=== PATIENT | female | born 1955 | race Caucasian/White ===

== ENCOUNTER 2024-05-31 17:37 | Inpatient (IN) | payer MEDICARE ==
[2024-05-31 19:05] LABS: PT Prothrombin Time 11.9 SECONDS (9.4-12.5); PTT, Activated Partial Thromb 32.5 SECONDS (24.3-36.9); Protime INR 1.06
[2024-05-31 19:07] LABS: Absolute Basophils 0.1 K/uL (0-0.5); Absolute Monocytes 0.8 K/uL (0.1-1.3); Absolute Neutrophil 8.2 K/uL (1.8-8.0); Basophils % 0.7 % (0-1.3); Eosinophils % 0.2 % (0-4.4); Hematocrit 51.7 % (36.0-45.0); Hemoglobin 17.3 g/dL (12.0-15.0); Lymphocytes % 17.9 % (15.3-44.8); MCH 32.5 pg (27.0-35.0); MCHC 33.4 g/dL (32.0-36.0); MCV 97.4 fL (80-100); MPV 8.3 fL (7.6-11.3); Monocytes % 7.4 % (3.3-12.3); Neutrophils % 73.8 % (41.7-73.7); Nucleated Red Blood Cells % 0.1 % (0-0); Platelets 190 thou/uL (152-406); RBC Red Blood Cell Count 5.31 M/uL (3.86-4.86); Red Cell Distribution Width 12.8 % (12.1-15.2)
--- NOTE | 2024-05-31 19:09 | RAD REPORT ---
EXAMINATION: CT HEAD WITHOUT CONTRAST CLINICAL INDICATION: Female, 69 years old.TRAUMA TECHNIQUE: Axial CT images from the skull base to the vertex without intravenous contrast. Coronal an d sagittal reformatted images were created from the data set. One or more of the following dose reduction techniques were used: Automated exposure control, adjustment of the mA and/or kV according to patient size, and/or iterative reconstruction. Unless otherwise specified, incidental findings do not require dedicated imaging follow-up. [id number]. COMPARISON: No prior exam. FINDINGS: INTRACRANIAL: No acute intracranial hemorrhage. No hydrocephalus. No mass effect or midline shift. Mo derate chronic small vessel ischemic changes. Remote appearing basal ganglia/thalamic lacunar infarcts. Calcified bilateral ICA plaque. VASCULATURE: No visualized abnormalities in the arteries or dural venous sinuses. SCALP/SKULL: No significant soft tissue or osseous abnormalities. SINUSES: The visualized paranasal sinuses and mastoid air cells are predominantly clear. IMPRESSION: No acute intracranial abnormality.
[2024-05-31 19:19] LABS: Albumin 3.2 g/dL (3.4-5.0); Albumin/Globulin Ratio 0.9 (1.1-1.8); Anion Gap 10.5 mEq/L (5.0-15.0); Bilirubin Total 0.6 mg/dL (0.2-1.0); Globulin 3.5 g/dL (2.3-3.5); Potassium 3.5 mEq/L (3.5-5.1); Protein, Total 6.7 g/dL (6.4-8.2)
[2024-05-31] MEDS ORDERED: HYDRALAZINE HCL 20 MG/ML VIAL ONE (19:19)
[2024-05-31] MEDS ORDERED: LABETALOL 20 MG/4ML SYRINGE IV ONE (19:20)
[2024-05-31 19:22] LABS: Troponin High Sensitivity 121.4 pg/mL (<58.9)
[2024-05-31] MEDS ORDERED: TDAP (DIPHTH,PERTUSS(ACELL),TET VAC) 0.5 ML VIAL IMVAC ONE (19:39)
[2024-05-31] MEDS ORDERED: ASPIRIN 81 MG CHEWABLE TABLET ONE ×2 (20:02→20:03)
[2024-05-31] MEDS ORDERED: HEPARIN/D5W 25,000 UNIT/500 ML BAG IV ONE (21:41)
[2024-05-31] MEDS ORDERED: HEPARIN 5000 UNIT/ML 1 ML VIAL ONE (21:41)
--- NOTE | 2024-05-31 22:33 | ER ---
Nurse's Notes [facility] Name: Sandie Moctezuma Age: 69 yrs Sex: Female : 1955 Arrival Date: 05/31/2024 Time: 17:37 Bed 19 Private MD: Diagnosis: Abnormal electrocardiogram [ECG] [EKG];Fall on same level, unspecified;Hypertensive emergency Presentation: 05/31 18:03 Chief complaint: Patient states: fell using her walker, denies LOC, reports hitting aa5 back of head, laceration to back of head, bleeding controlled. Denies taking any anticoagulants. Coronavirus screen: At this time, the client does not indicate any symptoms associated with coronavirus-19. Ebola Screen: Patient denies travel to an Ebola-affected area in the 21 days before illness onset. Initial Sepsis Screen: Does the patient meet any 2 criteria? HR > 90 bpm. Does the patient have a suspected source of infection? No. Patient's initial sepsis screen is negative. Risk Assessment: Do you want to hurt yourself or someone else? Patient reports no desire to harm self or others. Onset of symptoms was May 31, 2024. 18:03 Acuity: RADHA 2 aa5 18:03 Method Of Arrival: Wheelchair aa5 Triage Assessment: 19:30 General: Appears. General: Appears in no apparent distress. Behavior is calm, rg5 cooperative. 19:30 Pain: Denies pain. rg5 Historical: - Allergies: 18:02 No Known Allergies; aa5 - Home Meds: 18:02 None [Active]; aa5 - PMHx: 18:02 None; aa5 - Immunization history:: Adult Immunizations unknown. - Infectious Disease History:: Denies. - Social history:: Smoking status: Patient denies any tobacco usage or history of. Screenin:10 [facility] ED Fall Risk Assessment (Adult) History of falling in the last 3 months, rg5 including since admission Yes- single mechanical fall (1 pt) Confusion or Disorientation No (0 pts) Intoxicated or Sedated No (0 pts) Impaired Gait Yes (1 pt) Mobility Assist Device Used Yes (1 pt) Altered Elimination No (0 pt) Score/Fall Risk Level 3 or more points = High Risk Oriented to surroundings, Maintained a safe environment, Hourly rounding (assess needs \T\ fall precautionary measures) done, Used ambulatory aids as needed (educated on \T\ assisted with). 19:10 Abuse screen: Denies threats or abuse. Nutritional screening: No deficits noted. rg5 Tuberculosis screening: No symptoms or risk factors identified. Assessment: 19:10 General: Appears in no apparent distress. comfortable, Behavior is calm, cooperative, rg5 appropriate for age. 19:10 Pain: Complains of pain in occipital area Pain currently is 5 out of 10 on a pain rg5 scale. Quality of pain is described as aching, Pain began 2 hours ago. Neuro: Level of Consciousness is awake, alert, obeys commands, Oriented to person, place, time. Cardiovascular: Denies chest pain, Heart tones S1 S2 Patient's skin is warm and dry. Rhythm is sinus tachycardia. Respiratory: Airway is patent Trachea midline Breath sounds are clear. GI: Abdomen is flat, Abd is soft and non tender. : No signs and/or symptoms were reported regarding the genitourinary system. EENT: No deficits noted. Derm: Skin is intact, Skin is dry, Skin is normal, Skin temperature is warm. Musculoskeletal: Circulation, motion, and sensation intact. Range of motion: intact in all extremities. 20:00 Reassessment: No changes from previously documented assessment. Patient and/or family rg5 updated on plan of care and expected duration. Pain level reassessed. Patient is alert, oriented x 3, equal unlabored respirations, skin warm/dry/pink. 21:00 Reassessment: No changes from previously documented assessment. Patient and/or family rg5 updated on plan of care and expected duration. Pain level reassessed. Patient is alert, oriented x 3, equal unlabored respirations, skin warm/dry/pink. 22:00 Reassessment: No changes from previously documented assessment. Patient and/or family rg5 updated on plan of care and expected duration. Pain level reassessed. Patient is alert, oriented x 3, equal unlabored respirations, skin warm/dry/pink. 23:00 Reassessment: No changes from previously documented assessment. Patient and/or family rg5 updated on plan of care and expected duration. Pain level reassessed. Patient is alert, oriented x 3, equal unlabored respirations, skin warm/dry/pink. Vital Signs: 18:03 BP 211 / 140; Pulse 110; Resp 18 S; Temp 98.1(O); Pulse Ox 99% on R/A; aa5 19:10 BP 179 / 129; Pulse 104; Resp 18; Pulse Ox 97% on R/A; rg5 20:05 BP 129 / 65; Pulse 99; Resp 17; Weight 43.09 kg; Height 5 ft. 4 in. ; Pain 0/10; rg5 21:00 BP 104 / 68; Pulse 101; Resp 18; Pulse Ox 98% on R/A; rg5 22:00 BP 123 / 75; Pulse 90; Resp 18; Pulse Ox 91% on R/A; Pain 0/10; rg5 23:00 BP 121 / 74; Pulse 102; Resp 19; Temp 98; Pulse Ox 95% on 3 lpm NC; rg5 20:05 Body Mass Index 16.31 (43.09 kg, 162.56 cm) rg5 20:05 Pain Scale: Adult rg5 22:00 Pain Scale: Adult rg5 Amalia Coma Score: 19:10 Eye Response: spontaneous(4). Motor Response: obeys commands(6). Verbal Response: rg5 oriented(5). Total: 15. ED Course: 17:39 Patient arrived in ED. ra3 17:40 Gian Kimball [facility]-C [facility]. dr5 17:40 Diane Garcia MD is Attending Physician. dr5 18:02 Arm band placed on. aa5 18:04 Triage completed. aa5 18:23 Evelyne Markham, RN is Primary Nurse. me1 18:50 Initial lab(s) drawn, by nm, sent to lab. Inserted saline lock: 22 gauge in right me1 antecubital area, using aseptic technique. 18:59 Head Brain Wo Cont CT In Process Unspecified. EDMS 19:10 Patient has correct armband on for positive identification. Bed in low position. Call rg5 light in reach. Side rails up X 1. Door closed. Noise minimized. Warm blanket given. 19:10 No provider procedures requiring assistance completed. rg5 22:31 Devendra Cartagena MD is Hospitalizing Provider. dr5 12 00:33 Provided Education on: needs for admit. rg5 00:33 Patient admitted, IV remains in place. intact. rg5 Administered Medications: 05/31 19:22 Drug: Labetalol IV 10 mg IV at per protocol once Route: IV; Rate: per protocol; Site: rg5 right antecubital; 20:08 Follow up: Response: No adverse reaction; Blood pressure is lowered rg5 22:00 Follow up: Response: No adverse reaction; Blood pressure is lowered rg5 22:00 Follow up: IV Status: Completed infusion rg5 19:22 Drug: hydrALAZINE PO 10 mg PO once Route: PO; rg5 20:08 Follow up: Response: No adverse reaction; Blood pressure is lowered rg5 19:46 Drug: Boostrix Tdap IM 0.5 ml IM once; as a single dose Route: IM; Site: left deltoid; rg5 20:08 Follow up: Response: No adverse reaction rg5 20:04 Drug: Aspirin PO Chewable Tablet 324 mg PO once; 81 mg tablets x 4 Route: PO; rg5 20:47 Follow up: Response: No adverse reaction rg5 21:15 Drug: Heparin (ID-Bolus No thrombolytic) - HEParin IVP 60 units/kg IVP once; Max 5000 rg5 units {Co-Signature: 1 (Evelyne Markham RN).} Route: IVP; Site: right antecubital; 06/01 00:22 Follow up: Response: No adverse reaction rg5 05/31 21:15 Drug: Heparin (ID Drip) 12 units/kg/[place] - ([place] [address] units, D5W IV 500 ml) IV at rg5 calculated rate Per protocol; Max initial rate 1000 units/hr {Co-Signature: me1 (Evelyne Markham RN).} Route: IV; Rate: calculated rate; Site: right antecubital; 06/01 05:46 Follow up: Rate change 600 units/hr rg5 Medication: 00:25 VIS not applicable for this client. rg5 Intake: 05:12 PO: 250ml; Total: 250ml. rg5 Output: 05:12 Urine: 1700ml (Voided); Total: 1700ml. rg5 Outcome: 05/31 22:33 Decision to Hospitalize by Provider. dr5 23:00 Admitted to ER Hold. Please see [facility] for further documentation. rg5 23:00 Condition: good 23:00 Instructed on the need for admit, 06/01 11:57 Patient left the ED. kc6 Signatures: Dispatcher [employer] Megan Yepez RN RN aa5 Zohreh Bolanos RN RN kc6 Evelyne Markham RN RN me1 Piper Shannon ra3 Brayan Humphrey RN RN rg5 Gian Kimball, ASSISTANT QUALITY MANAGER-C ASSISTANT QUALITY MANAGER-Cdr5 Evelyne Markham RN me1 Corrections: (The following items were deleted from the chart) 05/31 18:06 18:03 Pulse 110bpm; Resp 18bpm; Spontaneous; Pulse Ox 99% RA; Temp 98.1F Oral; aa5 aa5 20:17 20:05 BP 129 / 65; Pulse 99bpm; Resp 17bpm; Pain 0/10, Adult; rg5 rg5
--- NOTE | 2024-05-31 22:34 | EDPHYS ---
Physician Documentation [facility] Name: Sandie Moctezuma Age: 69 yrs Sex: Female : 1955 Arrival Date: 05/31/2024 Time: 17:37 Bed 19 Private MD: ED Physician Diane Garcia HPI: 05/31 18:02 This 69 yrs old Female presents to ER via Unassigned with complaints of Head dr5 Injury Without LOC-Adult - Open wound. 18:02 This 69 yrs old Female presents to ER via Unassigned with complaints of Head Injury dr5 Without LOC-Adult - Open wound. 18:02 Patient is a 69 year old female who was walking with her wheelchair, lost her balance, dr5 and fell back and hit her. Pt denies being on blood thinners and denies losing consciousness. Fall happened today around 1600. Pt denies seeing primary care physician and not on daily medication.. Historical: - Allergies: 18:02 No Known Allergies; aa5 - Home Meds: 18:02 None [Active]; aa5 - PMHx: 18:02 None; aa5 - Immunization history:: Adult Immunizations unknown. - Infectious Disease History:: Denies. - Social history:: Smoking status: Patient denies any tobacco usage or history of. ROS: 18:43 Constitutional: as per hpi dr5 Exam: 18:43 Constitutional: This is a well developed, well nourished patient who is awake, alert, dr5 and in no acute distress. Head/Face: Normocephalic 18:43 Head/face: Noted is a laceration(s), that is linear, of the Back of head. Contusion noted. No bleeding in triage., 20:58 ECG was reviewed by the Attending Physician. dr5 22:38 Neck: Trachea midline, no thyromegaly or masses palpated, and no cervical dr5 lymphadenopathy. Supple, full range of motion without nuchal rigidity, or vertebral point tenderness. No Meningismus. Chest/axilla: Normal chest wall appearance and motion. Nontender with no deformity. No lesions are appreciated. Cardiovascular: Regular rate and rhythm with a normal S1 and S2. Normal PMI, no JVD. No pulse deficits. Respiratory: Lungs have equal breath sounds bilaterally, clear to auscultation. No rales, rhonchi or wheezes noted. No increased work of breathing, no retractions or nasal flaring. Back: No spinal tenderness. No costovertebral tenderness. Full range of motion. Neuro: Awake and alert, GCS 15, oriented to person, place, time, and situation. Cranial nerves II-XII grossly intact. Motor strength 5/5 in all extremities. Sensory grossly intact. Cerebellar exam normal. Normal gait. Vital Signs: 18:03 BP 211 / 140; Pulse 110; Resp 18 S; Temp 98.1(O); Pulse Ox 99% on R/A; aa5 19:10 BP 179 / 129; Pulse 104; Resp 18; Pulse Ox 97% on R/A; rg5 20:05 BP 129 / 65; Pulse 99; Resp 17; Weight 43.09 kg; Height 5 ft. 4 in. ; Pain 0/10; rg5 21:00 BP 104 / 68; Pulse 101; Resp 18; Pulse Ox 98% on R/A; rg5 22:00 BP 123 / 75; Pulse 90; Resp 18; Pulse Ox 91% on R/A; Pain 0/10; rg5 23:00 BP 121 / 74; Pulse 102; Resp 19; Temp 98; Pulse Ox 95% on 3 lpm NC; rg5 20:05 Body Mass Index 16.31 (43.09 kg, 162.56 cm) rg5 20:05 Pain Scale: Adult rg5 22:00 Pain Scale: Adult rg5 Imnaha Coma Score: 19:10 Eye Response: spontaneous(4). Motor Response: obeys commands(6). Verbal Response: rg5 oriented(5). Total: 15. Laceration: 19:46 Wound Repair of 1cm ( 0.4in ) subcutaneous laceration to left parietal area. Linear dr5 shaped.. Distal neuro/vascular/tendon intact. Wound prep: Simple cleansing, Copious irrigation. Skin closed with 2 Staple Brandyn using staple gun. Dressed with non-adherent dressing. Patient tolerated well. MDM: 17:41 Medical Screening Exam initiated dr5 22:36 Differential diagnosis: Contusion of Laceration of Intracranial bleed- Concussion. Data dr5 reviewed: vital signs, nurses notes, lab test result(s), EKG, radiologic studies, I have discussed the patient's presentation/case with the attending Emergency Department Physician;. Consideration of Admission/Observation Patient was admitted/placed on observation. I considered the following discharge prescriptions or medication management in the emergency department Medications were administered in the Emergency Department. See MAR. Care significantly affected by the following chronic conditions: . Care significantly affected by the following Social Determinants of Health: Poor access to healthcare and/or lack of insurance, Poor access to transportation, Unemployment, Problems related to employment. Counseling: I had a detailed discussion with the patient and/or guardian regarding the historical points, exam findings, and any diagnostic results supporting the discharge/admit diagnosis, lab results, radiology results, the need for further work-up and treatment in the hospital. ED course: Spoke with Dr. Cartagena who accepted patient to be admitted.. ED course: Pt has not had any episodes of chest pain in the ER. Blood pressure resolved after BP medications. Heparin drip started and ASA given in ER. Pt has no complaints at this time.. 05/31 18:07 Order name: CBC with Diff; Complete Time: 19:18 dr5 05/31 18:07 Order name: High Sensitivity Troponin; Complete Time: 19:23 dr5 05/31 18:07 Order name: Protime (+inr); Complete Time: 19:05 dr5 05/31 18:07 Order name: Ptt, Activated; Complete Time: 19:05 dr5 05/31 18:07 Order name: CMP; Complete Time: 19:23 dr5 05/31 21:01 Order name: Troponin High Sensitivity; Complete Time: 22:17 dr5 06/01 00:45 Order name: Urinalysis w/ reflexes EDMS 06/01 00:45 Order name: CBC with Automated Diff EDMS 06/01 00:45 Order name: CBC with Automated Diff EDMS 06/01 00:45 Order name: Comprehensive Metabolic Panel EDMS 06/01 00:45 Order name: Comprehensive Metabolic Panel EDMS 06/01 00:45 Order name: Troponin High Sensitivity EDMS 06/01 00:45 Order name: Troponin High Sensitivity EDMS 06/01 00:45 Order name: Troponin High Sensitivity EDMS 06/01 00:45 Order name: Troponin High Sensitivity EDMS 06/01 05:09 Order name: Ptt, Activated rg5 06/01 05:30 Order name: PTT, Activated Partial Thromb EDMS 06/01 05:52 Order name: Lipid Profile EDMS 06/01 05:52 Order name: Comprehensive Metabolic Panel EDMS 06/01 08:07 Order name: CBC with Automated Diff EDGA 06/01 08:37 Order name: Hemoglobin A1c EDGA 06/01 10:47 Order name: Creatine Phosphokinase EDGA 06/01 11:35 Order name: Ptt, Activated kc6 05/31 18:01 Order name: Head Brain Wo Cont CT; Complete Time: 19:10 dr5 05/31 22:51 Order name: Chest For Pe Angio EDGA 06/01 10:00 Order name: CT EDGA 05/31 18:07 Order name: EKG; Complete Time: 18:08 dr5 05/31 20:13 Order name: EKG; Complete Time: 20:13 dr5 05/31 18:07 Order name: Accucheck; Complete Time: 19:46 dr5 05/31 18:07 Order name: Cardiac monitoring; Complete Time: 19:22 dr5 05/31 18:07 Order name: EKG - Nurse/Tech; Complete Time: 20:03 dr5 05/31 18:07 Order name: IV Saline Lock; Complete Time: 18:51 [facility] 05/31 18:07 Order name: Labs collected and sent; Complete Time: 18:51 dr5 05/31 18:07 Order name: NPO; Complete Time: 18:51 dr5 05/31 18:07 Order name: O2 Per Protocol; Complete Time: 18:51 [facility] 05/31 18:07 Order name: O2 Sat Monitoring; Complete Time: 18:51 dr5 05/31 18:07 Order name: Stroke Swallow Screen; Complete Time: 19:46 dr5 05/31 20:13 Order name: EKG - Nurse/Tech; Complete Time: 20:16 dr5 06/01 02:02 Order name: Misc. Order: Trop lab draw; Complete Time: 02:11 sp EC:39 Rate is 106 beats/min. Rhythm is regular. QRS [facility] is Normal. MT interval is normal at dr5 124 msec. QRS interval is normal at 100 msec. QT interval is normal at 376 msec. Administered Medications: 19:22 Drug: Labetalol IV 10 mg IV at per protocol once Route: IV; Rate: per protocol; Site: [facility] right antecubital; 20:08 Follow up: Response: No adverse reaction; Blood pressure is lowered [facility] 22:00 Follow up: Response: No adverse reaction; Blood pressure is lowered [facility] 22:00 Follow up: IV Status: Completed infusion rg5 19:22 Drug: hydrALAZINE PO 10 mg PO once Route: PO; rg5 20:08 Follow up: Response: No adverse reaction; Blood pressure is lowered rg5 19:46 Drug: Boostrix Tdap IM 0.5 ml IM once; as a single dose Route: IM; Site: left deltoid; rg5 20:08 Follow up: Response: No adverse reaction rg5 20:04 Drug: Aspirin PO Chewable Tablet 324 mg PO once; 81 mg tablets x 4 Route: PO; rg5 20:47 Follow up: Response: No adverse reaction rg5 21:15 Drug: Heparin ([place]-Bolus No thrombolytic) - HEParin IVP 60 units/kg IVP once; Max 5000 rg5 units {Co-Signature: shiva (Evelyne Markham RN).} Route: IVP; Site: right antecubital; 06/01 00:22 Follow up: Response: No adverse reaction rg5 05/31 21:15 Drug: Heparin ([place] Drip) 12 units/kg/[place] - ([place] [address] units, D5W IV 500 ml) IV at rg5 calculated rate Per protocol; Max initial rate 1000 units/hr {Co-Signature: shiva (Evelyne Markham RN).} Route: IV; Rate: calculated rate; Site: right antecubital; 06/01 05:46 Follow up: Rate change 600 units/hr rg5 Disposition Summary: 05/31/24 22:33 Hospitalization Ordered Notes: Hospitalization Status: Inpatient Admission dr5 Provider: Devendra Cartagena Condition: Stable dr5 Problem: new dr5 Symptoms: are unchanged dr5 Bed/Room Type: Standard dr5 Location: Telemetry/MedSurg (Inpatient)(06/01/24 10:49) bd Room Assignment: 219(06/01/24 10:49) bd Diagnosis - Abnormal electrocardiogram [ECG] [EKG] dr5 - Fall on same level, unspecified dr5 - Hypertensive emergency dr5 Forms: - Medication Reconciliation Form dr5 - SBAR form dr5 - Leadership Thank You Letter dr5 Signatures: Dispatcher [employer] Alexia Tyler Shawna sp Calderon, Audri, RN RN aa5 Arlin Umaña RN RN cg Gallardo, Rommel, RN RN rg5 iGan Kimball FNP-C WATER CONSERVATIONIST-Cdr5 Evelyne Markham RN me1 Corrections: (The following items were deleted from the chart) 05/31 18:02 18:02 Head Brain Wo Cont+CT.RAD.BRZ ordered. EDMS EDMS 19:24 18:02 Patient is a 69 year old female who was walking with her wheelchair, lost her dr5 balance, and fell back and hit her. Pt denies being on blood thinners and denies losing consciousness. Fall happened today around 1600.. dr5 19:24 18:02 Patient is a 69 year old female who was walking with her wheelchair, lost her dr5 balance, and fell back and hit her. Pt denies being on blood thinners and denies losing consciousness. Fall happened today around 1600. Pt denies seeing primary care physician and not on daily medicaiton.. dr5 22:39 22:33 Telemetry/MedSurg (Inpatient) dr5 cg 22:39 22:33 dr5 cg 06/01 10:49 1208 22:39 [facility] ER [facility] cg bd 06/01 10:49 1208 22:[facility]
[2024-06-01] MEDS ORDERED: ONDANSETRON 4 MG/2 ML VIAL IV PRN (00:40)
[2024-06-01] MEDS ORDERED: ACETAMINOPHEN 325 MG TABLET PO PRN (00:40)
--- NOTE | 2024-06-01 00:40 | P.HP ---
Certification for Inpatient Patient admitted to: Inpatient With expected LOS: >2 Midnights Practitioner: I am a practitioner with admitting privileges, knowledge of patient current condition, hospital course, and medical plan of care. Services: Services provided to patient in accordance with Admission requirements found in Title 42 Section 412.3 of the Code of Federal Regulations Patient History Date of Service: 06/01/24 Reason for admission: Elevated Trop, Fall History of Present Illness: 69 yrs old Female who was brought to ER after suffering a fall and causing head Injury Without LOC-Adult along with Open wound which was repaired with lindsey in the ER. She stated that she was walking with her wheelchair and lost her balance and fell back and hit her head on the backside. Patient is a poor historian hence most of the history is obtained from the chart review and also talking with the ER physicians. Patient has denies to be on blood thinners. No fever or chills. Denies any dizziness or loss of consciousness. No nausea vomiting or diarrhea. Patient was assessed in the ER and found to have elevated troponin and was started on heparin drip and was admitted for further management. Allergies No Known Allergies Allergy (Unverified 06/01/24 01:37) Home medications list reviewed: Yes - Past Medical/Surgical History Past Medical History: Reviewed- Non-Contributory Past Surgical History: Reviewed- Non-Contributory - Family History Family History: Reviewed- Non-Contributory - Social History Smoking Status: Never smoker Review of Systems is unable to be obtained Physical Examination - Vital Signs Temperature: 98.1 F Blood Pressure: 126/78 Pulse: 92 Respirations: 18 Pulse Ox (%): 96 - Physical Exam General: Alert, Mild distress, Confused HEENT: Atraumatic, Normocephalic Neck: Supple, No Thyromegaly Respiratory: Clear to auscultation bilaterally, Normal air movement Cardiovascular: Regular rate/rhythm, Normal S1 S2 Capillary refill: <2 Seconds Gastrointestinal: Soft and benign, W/out hepatosplenomegaly Musculoskeletal: No clubbing, No swelling Integumentary: Tenderness/swelling Neurological: Other (Alert awake, confused, moves all the limbs) Lymphatics: No axilla or inguinal lymphadenopathy - Studies Laboratory Data (last 24 hrs) 05/31/24 05/31/24 05/31/24 18:48 18:48 18:48 WBC 11.10 H Hgb 17.3 H Hct 51.7 H Plt Count 190 PT 11.9 INR 1.06 APTT 32.5 Sodium 139 Potassium 3.5 BUN 10 Creatinine 0.42 L Glucose 110 H Total Bilirubin 0.6 AST 26 ALT 26 Alkaline Phosphatase 72 Assessment and Plan - Plan NSTEMI possibly type II due to fall Will trend cardiac enzymes Will monitor telemetry Started on aspirin and statin EKG did not show any acute changes suggestive of ischemia Patient denies any chest pain Will get an echocardiogram Cardiology consult ER already started on heparin drip Head injury Possible concussion Monitor neuro vital signs CT head was negative for any acute changes Lacerated injury to the scalp Lindsey applied here in ER GI/DVT prophylaxis Advanced directive full code Discharge Plan: Intermediate Plan to discharge in: 48 Hours - Advance Directives Does patient have a Living Will: No Does patient have a Durable POA for Healthcare: No - Code Status/Comfort Care Code Status: Full Code Time Spent Managing Pts Care (In Minutes): 48
[2024-06-01] MEDS: NA CHLORIDE 0.9% 1,000 ML IV SCH (01:00)
[2024-06-01] MEDS ORDERED: NA CHLORIDE 0.9% 1,000 ML ONE (01:47)
[2024-06-01 02:11] VITALS: BMI 16.2
[2024-06-01] MEDS ORDERED: HYDROCODONE/APAP 5/325 MG TAB PO PRN (04:55)
[2024-06-01 05:52] LABS: Anion Gap 12.1 mEq/L (5.0-15.0); Bilirubin Total 0.7 mg/dL (0.2-1.0); Globulin 3.1 g/dL (2.3-3.5); Potassium 3.1 mEq/L (3.5-5.1); Protein, Total 6.1 g/dL (6.4-8.2)
[2024-06-01] MEDS ORDERED: ASPIRIN 81 MG CHEWABLE TABLET ONE (08:00)
[2024-06-01 08:04] LABS: Absolute Basophils 0.1 K/uL (0-0.5); Absolute Lymphocytes (CBC) 2.5 K/uL (0.7-4.9); Absolute Monocytes 0.7 K/uL (0.1-1.3); Absolute Neutrophil 5.5 K/uL (1.8-8.0); Basophils % 0.6 % (0-1.3); Eosinophils % 0.3 % (0-4.4); Hematocrit 46.3 % (36.0-45.0); Hemoglobin 15.4 g/dL (12.0-15.0); Lymphocytes % 28.2 % (15.3-44.8); MCH 32.7 pg (27.0-35.0); MCHC 33.3 g/dL (32.0-36.0); MCV 98.1 fL (80-100); MPV 8.4 fL (7.6-11.3); Monocytes % 8.3 % (3.3-12.3); Neutrophils % 62.6 % (41.7-73.7); Platelets 182 thou/uL (152-406); RBC Red Blood Cell Count 4.72 M/uL (3.86-4.86); Red Cell Distribution Width 12.9 % (12.1-15.2)
[2024-06-01] MEDS: ASPIRIN 81 MG CHEWABLE TABLET PO SCH (09:00)
--- NOTE | 2024-06-01 09:59 | RAD REPORT ---
EXAMINATION: CTA CHEST PE CLINICAL INDICATION: Chest pain TECHNIQUE: 100 cc 370 Isovue administered intravenously. This examination was performed according to an angiographic protocol with 3D post-processing. This involves 3D reconstructions, MIPs, volume rendered images and/or shaded surface rendering. One or more of the following dose reduction techniqu es were used: Automated exposure control, adjustment of the mA and/or kV according to patient size, and/or iterative reconstruction. Unless otherwise specified, incidental findings do not require dedic ated imaging follow-up. [id number]. COMPARISON: No prior exam. FINDINGS: A pulmonary embolus is not seen. An aortic aneurysm not noted. No pleural effusion. No pericardial effusion. 1.8 cm right lower lobe opacity. 2.6 cm right upper lobe opacity. 6 mm right lower lobe nodule abuts the pleural surface. Mild to moderate centrilobular emphysema. IMPRESSION: No evidence of a pulmonary embolism 2.6 and 1.8 cm right lung opacities. These could be infectious, inflammatory or neoplastic. PET CT sc an recommended for further evaluation. COPD
[2024-06-01] MEDS: PIPER TAZO 3.375 GM in NA CHLORIDE 0.9% 100 ML IV SCH (10:00)
[2024-06-01] MEDS ORDERED: PIPERACIL/TAZO 3.375 GM VIAL IV ONE (11:15)
[2024-06-01] MEDS ORDERED: NA CHLORIDE 0.9% 100 ML ONE (11:15)
--- NOTE | 2024-06-01 12:00 | RAD REPORT ---
EXAMINATION: CT LUMBAR SPINE WITHOUT CONTRAST CLINICAL INDICATION: Radiculopathy and leg weakness TECHNIQUE: Axial CT images were obtained through the lumbar spine in soft tissue and bone windows wit hout intravenous contrast. Coronal and Sagittal reformatted images were created from the data set. One or more of the following dose reduction techniques were used: Automated exposure control, adjustm ent of the mA and/ or kV according to patient size, and/or iterative reconstruction. Unless otherwise specified, incidental findings do not require dedicated imaging follow-up. COMPARISON: No prior exam. FINDINGS: For purposes of this dictation, it is assumed that there are 5 non rib-bearing lumbar type vertebrae, and the most caudal fully segmented lumbar vertebra is labeled L5. Moderate compression fractures T12 and L3 vertebral bodies. They have a more chronic than acute appea goldy. No dislocation. Moderate right posterior lateral disc herniation L5-S1. This displaces the right S1 nerve root wash driller helper iorly. Marked narrowing of the right neural foramina 7.4 x 5.2 x 5.5 cm (CC by AP by transverse) infrarenal abdominal aortic aneurysm. The entire anterior aspect of the aneurysm is not included in the [id number]. IMPRESSION: Moderate right posterior lateral disc herniation L5-S1. If clinically indicated MRI could be obtained for further evaluation Large abdominal aortic aneurysm. The patient's nurse Ness was notified 11:50 AM June 01, 2024
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
[2024-06-01] MEDS: ATORVASTATIN 40 MG TAB PO SCH (20:32)
[2024-06-02 05:24] LABS: Absolute Basophils 0.1 K/uL (0-0.5); Absolute Eosinophils 0.1 K/uL (0-0.5); Absolute Lymphocytes (CBC) 2.2 K/uL (0.7-4.9); Absolute Monocytes 0.8 K/uL (0.1-1.3); Basophils % 1.1 % (0-1.3); Eosinophils % 0.6 % (0-4.4); Hematocrit 42.6 % (36.0-45.0); Hemoglobin 14.5 g/dL (12.0-15.0); Lymphocytes % 27.2 % (15.3-44.8); MCH 33.1 pg (27.0-35.0); MCHC 33.9 g/dL (32.0-36.0); MCV 97.7 fL (80-100); MPV 7.9 fL (7.6-11.3); Monocytes % 10.2 % (3.3-12.3); Neutrophils % 60.9 % (41.7-73.7); Nucleated Red Blood Cells % 0.1 % (0-0); Platelets 163 thou/uL (152-406); RBC Red Blood Cell Count 4.36 M/uL (3.86-4.86)
[2024-06-02 05:56] LABS: AST/SGOT 12 U/L (15-37); Albumin 2.6 g/dL (3.4-5.0); Albumin/Globulin Ratio 0.9 (1.1-1.8); Alkaline Phosphatase 57 U/L (45-117); Anion Gap 6.3 mEq/L (5.0-15.0); BUN Blood Urea Nitrogen 8 mg/dL (7-18); Bicarbonate 26 mEq/L (21-32); Bilirubin Total 0.7 mg/dL (0.2-1.0); Globulin 2.8 g/dL (2.3-3.5); Glomerular Filtration Rate 114 ml/min (=/>90); Glucose Level 115 mg/dL (74-106); Potassium 3.3 mEq/L (3.5-5.1); Protein, Total 5.4 g/dL (6.4-8.2); Sodium Level 139 mEq/L (136-145)
[2024-06-02 06:03] LABS: ALT/SGPT < 14 U/L (13-56)
[2024-06-02] MEDS: POTASSIUM 25 MEQ EFFERV TAB PO ONE (09:28)
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
--- NOTE | 2024-06-02 10:14 | P.CNS ---
Date of Consult: 06/02/24 Chief Complaint: Elevated Trop, Fall History of Present Illness: Patient with no significant PMH presented with fall, mechanical while she was using her wheelchair, denies palpitations, no syncope, no chest pain, no SOB, no ANDREWS. Allergies No Known Allergies Allergy (Unverified 06/01/24 01:37) Home medications list reviewed: Yes Home Medications: NK [No Home Meds] 06/01/24 Review of Systems 10-point ROS is otherwise unremarkable Physical Examination Temp Pulse Resp BP Pulse Ox 97.6 F 89 18 131/68 96 06/02/24 04:00 06/02/24 04:00 06/02/24 04:00 06/02/24 04:00 06/02/24 04:00 General: Alert, In no apparent distress HEENT: Atraumatic, PERRLA, Mucous membr. moist/pink, EOMI, Sclerae nonicteric Neck: Supple, 2+ carotid pulse no bruit, No LAD, Without JVD or thyroid abnormality Respiratory: Clear to auscultation bilaterally, Normal air movement Cardiovascular: Regular rate/rhythm, Normal S1 S2 Gastrointestinal: Normal bowel sounds, No tenderness Musculoskeletal: No tenderness Integumentary: No rashes Neurological: Normal gait, Normal speech, Normal tone, Normal affect Lymphatics: No axilla or inguinal lymphadenopathy - Problems (1) NSTEMI (non-ST elevated myocardial infarction) Current Visit: Yes Status: Acute Plan: troponin mild elevated and trending down, most likely type 2 [place] from fall and possible infection, although patient EKG shows inferolateral ST depression, patient will need coronary angiogram but in findings of large infra renal AA, and lack of vascular and CT surgery back up, patient is high risk and will need transfer to medical center so cath can be coordinated with vascular surgery on site for back up. (2) Infrarenal abdominal aortic aneurysm (AAA) without rupture Current Visit: Yes Status: Acute Plan: transfer for medical center for vascular surgery evaluation. continue to control and monitor BP.
--- NOTE | 2024-06-02 14:19 | RAD REPORT ---
EXAMINATION: MRI BRAIN WITHOUT CONTRAST CLINICAL INDICATION: left leg weakness TECHNIQUE: Multiplanar multisequence MR images of the brain were obtained without intravenous contras t. Unless otherwise specified, incidental findings do not require dedicated imaging follow-up. COMPARISON: 05/31/2024 FINDINGS: INTRACRANIAL: Diffusion-weighted images show large area of restricted diffusion along the medial aspe ct of the right frontal lobe indicating acute CVA right anterior cerebral artery territory. In anterior posterior dimension the largest component of this infarction measures 7-8 cm, particularly n otable in the superior anterior aspect of the right frontal lobe measuring 5 cm.. There is advanced brain atrophy with advanced T2/FLAIR hyperintensities in the periventricular and de ep white matter regions, likely representing chronic microvascular ischemic changes. There is no mass effect or midline shift. No abnormal extraaxial fluid collection. VASCULATURE: Normal signal voids in the larger intracranial arteries and dural venous sinuses. SINUSES: The paranasal sinuses and mastoid air cells are predominantly clear. BONE: The marrow signal pattern is within normal limits. IMPRESSION: Large area of acute CVA noted right anterior cerebral artery territory. No hemorrhagic component seen .
--- NOTE | 2024-06-02 14:44 | RAD REPORT ---
EXAMINATION: MRI LUMBAR SPINE WITHOUT CONTRAST CLINICAL INDICATION: left leg weakness TECHNIQUE: Multiplanar multisequence MR images were obtained of the lumbar spine WITHOUT intravenou s contrast. Unless otherwise specified, incidental findings do not require dedicated imaging follow-up. COMPARISON: No prior exam. FINDINGS: For purposes of this dictation, it is assumed that there are 5 non rib-bearing lumbar type vertebrae, and the most caudal fully segmented lumbar vertebra is labeled L5. ALIGNMENT: The lumbar spine has normal alignment. BONE: Mild wedge compression deformity of L3 likely subacute. Similar mild wedge compression deformit y noted T11 and T12 also acute to subacute timeframe. No canal compromise. CORD: No abnormal signal in the cord. The conus medullaris terminates at a normal level. The nerve ro ots of the cauda equina appear normal. SOFT TISSUE: The included paraspinal soft tissues and retroperitoneal structures are grossly normal. EVALUATION OF THE INDIVIDUAL LEVELS: L1-2: Minimal posterior disc bulge. L2-3: Minimal posterior disc bulge and mild facet and ligament flavum hypertrophy. L3-4: Small posterior annular fissure centrally. Mild facet and ligamentum flavum hypertrophy. L4-5: Mild posterior disc bulge with small central/right paracentral disc protrusion. Small posterior annular fissure. Mild to moderate facet and ligamentum flavum hypertrophy. Mild narrowing of the right exit foramen. L5-S1: Large disc extrusion is present with large posterior annular fissure. This is asymmetric to th e right and results in right lateral recess narrowing. Mild facet hypertrophy. Mild narrowing of the anterior inferior aspects of both exit foramina. Partially visualized large aneurysm of the abdominal aorta. IMPRESSION: [id number] lower lumbar degenerative spondylosis. Findings are most notable at L5-S1 as dottye d. Abdominal aortic aneurysm, partially visualized. The findings were communicated with Sarabjit Ceballos MD at 06/02/2024 2:42 PM by telephone.
[2024-06-02 15:48] VITALS: O2SAT 96
[2024-06-02 17:50] VITALS: BP 134/73; TEMP 98.9
[2024-06-02] MEDS ORDERED: ENSURE ENLIVE 237 ML CAN PO SCH (21:00)
--- NOTE | 2024-06-05 16:05 | EKG ---
Test Date: 2024-05-31 Test Time: 20:00:41 Grounds Cleaner: DOMENICO MEASUREMENT RESULTS: Intervals: Rate: 99 NV: 126 QRSD: 96 QT: 382 QTc: 490 Newton: P: 54 NV: 126 QRS: 56 T: 214 INTERPRETIVE STATEMENTS: Normal sinus rhythm Possible Left atrial enlargement Marked ST abnormality, possible inferior subendocardial injury Marked ST abnormality, possible anterolateral subendocardial injury Prolonged QT Abnormal ECG No previous ECG available for comparison Electronically Signed On 06-05-24 15:56:18 WAX POURER by Jovon Mann
--- NOTE | 2024-06-05 16:05 | EKG ---
Test Date: 2024-05-31 Test Time: 20:39:44 Sample Maker: SHAD MEASUREMENT RESULTS: Intervals: Rate: 106 VA: 124 QRSD: 100 QT: 376 QTc: 499 [place]: P: 46 VA: 124 QRS: 43 T: -73 INTERPRETIVE STATEMENTS: Sinus tachycardia Marked ST abnormality, possible inferior subendocardial injury Marked ST abnormality, possible anterolateral subendocardial injury Abnormal ECG No previous ECG available for comparison Electronically Signed On 06-05-24 15:56:15 TAX CONSULTANT by Jovon Mann
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
== END 2024-06-02 17:44 | disposition short-term general hospital (02) | DRG 981 ==
LOC: ER 17:37 → ERHOLD 06-01 00:40 → 2ND 06-01 11:46
PROVIDERS: ADMIT Family Medicine; ATTEND Hospitalist
PROC: 0JQ00ZZ Repair Scalp Subcutaneous Tissue and Fascia, Open Approach (ICD-10-PCS; principal; 2024-06-01)
DX: I71.43 Infrarenal abdominal aortic aneurysm, without rupture (principal); I21.A1 Myocardial infarction type 2; I63.9 Cerebral infarction, unspecified; I16.1 Hypertensive emergency; S01.81XA Laceration without foreign body of other part of head, initial encounter; R79.89 Other specified abnormal findings of blood chemistry; Z56.0 Unemployment, unspecified; Z59.82 Transportation insecurity; Z59.71 Insufficient health insurance coverage; W01.0XXA Fall on same level from slipping, tripping and stumbling without subsequent striking against object, initial encounter; Y93.01 Activity, walking, marching and hiking; Y92.009 Unspecified place in unspecified non-institutional (private) residence as the place of occurrence of the external cause; Y99.9 Unspecified external cause status
CPT/HCPCS: 12001; 36415; 70450; 70551; 71275; 72131; 72148; 80053; 80061; 82550; 83036; 84132; 84145; 84484; 85025; 85610; 85730; 93005; 94760; 96365; 96366; 96372; 96375; 99285; J0360; J1644; J2543; J7030; Q9967

== ENCOUNTER 2024-08-27 09:20 | Emergency (ER) | payer MEDICARE, OTHER ==
[2024-08-27 11:21] LABS: Arterial Blood Carboxyhemoglob 1.4 % (0-1.5); Blood Gas Oxyhemoglobin 89.4 % (94-97); Blood Gas THB 15.1 g/dl (12-18); Blood O2 Saturation 92.3 % (92-98.5)
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
[2024-08-27 17:05] VITALS: TEMP 97.2
[2024-08-27 17:14] VITALS: BP 106/90; O2SAT 99
== END 2024-08-27 17:00 | disposition home or self-care (01) ==
LOC: ER 09:20
DX: T59.811A Toxic effect of smoke, accidental (unintentional), initial encounter (principal); Z86.73 Personal history of transient ischemic attack (TIA), and cerebral infarction without residual deficits
CPT/HCPCS: 36600; 82805; 99283

== ENCOUNTER 2024-09-08 22:10 | Emergency (ER) | payer OTHER ==
[2024-09-08] MEDS ORDERED: NA CHLORIDE 0.9% 500 ML ONE (22:21)
[2024-09-08 22:43] LABS: Absolute Basophils 0.1 K/uL (0-0.5); Absolute Eosinophils 0.2 K/uL (0-0.5); Absolute Lymphocytes (CBC) 2.6 K/uL (0.7-4.9); Absolute Monocytes 1.1 K/uL (0.1-1.3); Basophils % 0.7 % (0-1.3); Eosinophils % 0.8 % (0-4.4); Hematocrit 38.7 % (36.0-45.0); Hemoglobin 12.7 g/dL (12.0-15.0); Lymphocytes % 13.7 % (15.3-44.8); MCH 31.9 pg (27.0-35.0); MCHC 32.7 g/dL (32.0-36.0); MCV 97.3 fL (80-100); MPV 7.9 fL (7.6-11.3); Monocytes % 5.7 % (3.3-12.3); Neutrophils % 79.1 % (41.7-73.7); Nucleated Red Blood Cells % 0.1 % (0-0); Platelets 292 thou/uL (152-406); RBC Red Blood Cell Count 3.98 M/uL (3.86-4.86); Red Cell Distribution Width 13.6 % (12.1-15.2)
[2024-09-08 22:58] LABS: PT Prothrombin Time 12.4 SECONDS (10-13.0); Protime INR 1.09
[2024-09-08 23:08] LABS: AST/SGOT 13 U/L (15-37); Albumin 2.8 g/dL (3.4-5.0); Albumin/Globulin Ratio 0.8 (1.1-1.8); Alkaline Phosphatase 83 U/L (45-117); Anion Gap 9.4 mEq/L (5.0-15.0); BUN Blood Urea Nitrogen 7 mg/dL (7-18); Bicarbonate 25 mEq/L (21-32); Bilirubin Total 0.5 mg/dL (0.2-1.0); Globulin 3.5 g/dL (2.3-3.5); Glomerular Filtration Rate 101 ml/min (=/>90); Glucose Level 171 mg/dL (74-106); Lipase 13 U/L (13-75); Potassium 3.4 mEq/L (3.5-5.1); Protein, Total 6.3 g/dL (6.4-8.2); Sodium Level 140 mEq/L (136-145)
[2024-09-08 23:09] LABS: ALT/SGPT < 14 U/L (13-56)
[2024-09-09] MEDS ORDERED: ONDANSETRON 4 MG/2 ML VIAL ONE (00:33)
[2024-09-09] MEDS ORDERED: METOCLOPRAMIDE 10 MG/2mL INJ ONE (00:33)
[2024-09-09] MEDS ORDERED: CEFTRIAXONE 1000 MG/VIAL ONE (00:33)
[2024-09-09] MEDS ORDERED: PANTOPRAZOLE 40 MG INJ ONE ×2 (00:33→01:59)
[2024-09-09] MEDS ORDERED: FAMOTIDINE 20 MG/2 ML VIAL IV ONE (00:34)
[2024-09-09] MEDS ORDERED: NA CHLORIDE 0.9% 50 ML ONE (00:34)
[2024-09-09] MEDS ORDERED: OCTREOTIDE ACETATE 500 MCG/ML ONE (01:59)
[2024-09-09] MEDS ORDERED: NA CHLORIDE 0.9% 250 ML ONE (02:00)
[2024-09-09] MEDS ORDERED: NA CHLORIDE 0.9% 500 ML ONE (02:00)
[2024-09-09] MEDS ORDERED: NA CHLORIDE 0.9% 1,000 ML ONE (02:00)
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
--- NOTE | 2024-09-09 02:15 | ER ---
Nurse's Notes [facility] Name: Sandie Moctezuma Age: 69 yrs Sex: Female : 1955 Arrival Date: 09/08/2024 Time: 22:10 Bed 3 Private MD: Diagnosis: Acute lower GI bleed, Acute hemorrhagic shock, Presentation: 09/08 22:16 Chief complaint: EMS states: toned out for a lot of rectal bleeding starting at 2115. al5 Coronavirus screen: At this time, the client does not indicate any symptoms associated with coronavirus-19. Ebola Screen: No symptoms or risks identified at this time. Initial Sepsis Screen: Does the patient meet any 2 criteria? HR > 90 bpm. Does the patient have a suspected source of infection? No. Patient's initial sepsis screen is negative. Risk Assessment: Do you want to hurt yourself or someone else? Patient reports no desire to harm self or others. Onset of symptoms was September 08, 2024. 22:16 Method Of Arrival: EMS: [facility] al5 22:16 Acuity: RADHA 2 al5 22:16 Care prior to arrival: Medication(s) given: Normal saline infusion, 300 IV initiated. al5 18 GA, in the left antecubital area, Oxygen administered. via a non-rebreather mask. Triage Assessment: 22:19 General: Appears in no apparent distress. ill, slender, Behavior is cooperative. Pain: al5 Complains of pain in abdomen. EENT: No signs and/or symptoms were reported regarding the EENT system. Neuro: Level of Consciousness is awake, alert, obeys commands, Oriented to person, place, time, situation. Cardiovascular: Patient's skin is warm and dry. Rhythm is sinus tachycardia. Respiratory: Airway is patent Respiratory effort is even, unlabored, Respiratory pattern is regular, symmetrical. GI: Abdomen is flat, non-distended, Stools are reported to be bright red blood with clots. Reports rectal bleeding, bloody stool. : No signs and/or symptoms were reported regarding the genitourinary system. Derm: Skin is intact, is healthy with good turgor, Skin is pink, warm \T\ dry. normal. Musculoskeletal: No signs and/or symptoms reported regarding the musculoskeletal system. Historical: - Allergies: 22:18 No Known Allergies; al5 - PMHx: 22:18 Cerebrovascular accident; Diverticulitis; al5 - PSHx: 22:18 None; al5 - Immunization history:: Adult Immunizations up to date. - Infectious Disease History:: Denies. - Social history:: Smoking status: unknown. - Family history:: not pertinent. Screenin:25 [facility] ED Fall Risk Assessment (Adult) History of falling in the last 3 months, al5 including since admission No falls in past 3 months (0 pts) Confusion or Disorientation No (0 pts) Intoxicated or Sedated No (0 pts) Impaired Gait Yes (1 pt) Mobility Assist Device Used Yes (1 pt) Altered Elimination Yes (1 pt) Score/Fall Risk Level 3 or more points = High Risk Oriented to surroundings, Maintained a safe environment, Hourly rounding (assess needs \T\ fall precautionary measures) done. Abuse screen: Denies threats or abuse. Denies injuries from another. Nutritional screening: No deficits noted. Tuberculosis screening: No symptoms or risk factors identified. Assessment: 22:25 Reassessment: see triage assessment. al5 23:50 Reassessment: Patient appears in no apparent distress at this time. No changes from al5 previously documented assessment. Patient and/or family updated on plan of care and expected duration. Pain level reassessed. Patient is alert, oriented x 3, equal unlabored respirations, skin warm/dry/pink. no BM since arrival. 09/09 00:49 Reassessment: Patient appears in no apparent distress at this time. No changes from al5 previously documented assessment. Patient and/or family updated on plan of care and expected duration. Pain level reassessed. Patient is alert, oriented x 3, equal unlabored respirations, skin warm/dry/pink. 02:00 Reassessment: Patient appears in no apparent distress at this time. No changes from al5 previously documented assessment. Patient and/or family updated on plan of care and expected duration. Pain level reassessed. Patient is alert, oriented x 3, equal unlabored respirations, skin warm/dry/pink. 03:00 Reassessment: Patient appears in no apparent distress at this time. No changes from al5 previously documented assessment. Patient and/or family updated on plan of care and expected duration. Pain level reassessed. Patient is alert, oriented x 3, equal unlabored respirations, skin warm/dry/pink. 04:07 Reassessment: Patient appears in no apparent distress at this time. No changes from al5 previously documented assessment. Patient and/or family updated on plan of care and expected duration. Pain level reassessed. Patient is alert, oriented x 3, equal unlabored respirations, skin warm/dry/pink. Vital Signs: 09/08 22:16 BP 123 / 99; Pulse 116; Resp 16; Temp 97.3(A); Pulse Ox 100% ; Weight 40.82 kg; Height al5 5 ft. 3 in. ; 22:35 al5 09/09 01:00 BP 93 / 70; Pulse 82; Resp 18; Temp 97.5; Pulse Ox 100% on 15 lpm Non-rebreather mask; al5 01:30 BP 112 / 73; Pulse 86; Resp 17; Pulse Ox 100% on 15 lpm Non-rebreather mask; al5 02:00 BP 132 / 79; Pulse 96; Resp 20; Pulse Ox 100% 2 lpm ; al5 02:30 BP 141 / 82; Pulse 85; Resp 19; Pulse Ox 100% on 2 lpm NC; al5 03:00 BP 114 / 64; Pulse 80; Resp 18; Pulse Ox 98% on 2 lpm NC; al5 03:30 BP 138 / 81; Pulse 91; Resp 19; Pulse Ox 100% on 2 lpm NC; al5 04:00 BP 145 / 80; Pulse 93; Resp 18; Pulse Ox 100% on 2 lpm NC; al5 09/08 22:16 Body Mass Index 15.94 (40.82 kg, 160.02 cm) al5 09/08 22:35 see blood transfusion flow sheet for vitals al5 Mertzon Coma Score: 09/09 02:11 Eye Response: spontaneous(4). Motor Response: obeys commands(6). Verbal Response: sp4 oriented(5). Total: 15. ED Course: 09/08 22:10 Patient arrived in ED. jj6 22:11 Kurt Beltrán MD is Attending Physician. sp4 22:16 Asha Baeza RN is Primary Nurse. al5 22:18 Triage completed. al5 22:24 Arm band placed on right wrist. Patient placed in the treatment room, in view of staff al5 members, on oxygen, on rn cardiac rehab, on pulse oximetry. 22:26 Inserted saline lock: 18 gauge in right antecubital area, using aseptic technique. al5 ,using aseptic technique. by shantanu Blood collected. Flushed with 10 mL NS Maintain EMS IV. Dressing intact. Good blood return noted. Site clean \T\ dry. Gauge \T\ site: 18G LAC. Flushed with 10 mL NS. 22:28 Asha Baeza, RN is Primary Nurse. al5 22:28 Patient has correct armband on for positive identification. Placed in gown. Bed in low al5 position. Call light in reach. Side rails up X2. Provided Education on: plan of care. 09/09 01:27 Angio Aorta For Dissection In Process Unspecified. EDMS 01:41 called [facility] to start transfer. talked with. sp 02:30 Chest Single View XRAY In Process Unspecified. EDMS 02:30 Assisted provider with central line placement. Set up central line tray. Triple lumen al5 line placed in left subclavian. Line placed by Kurt Beltrán MD Placement verified by CXR, blood return, Dressed with Tegaderm, Blood was collected. Patient tolerated well. Before procedure, did Practitioner(s) obtain informed consent? Yes. Patient \T\ family education about procedure, CLABSI prevention and S/S of infection? Yes. Time-out/Briefing performed prior to start of procedure? Yes. Was handwashing/sanitizing done immediately prior to procedure? Yes. Was patient positioned to in a way to prevent air embolism? Yes. Was procedure site sterilized? Yes, with chlorhexidine. Was the site allowed to dry? Yes. Was local anesthetic and/or sedation utilized? Yes. During the procedure, did the Practitioner(s) maintain a sterile field? Yes. Were unused ports clamped during insertion? Yes. Was a 2nd qualified MD obtained after 3 unsuccessful insertion attempts? No. Was blood aspirated from each lumen? Yes. After the procedure, did the Practitioner(s) clean the site and apply a sterile dressing? Yes. 03:24 Spoke to Jorge MG, patient was accepted to [facility] RM 9, to vk Dr. Palmer Report [phone]. 03:46 Chest Single View XRAY In Process Unspecified. EDMS 04:28 Patient transferred, IV remains in place. al5 Administered Medications: 00:48 Drug: Famotidine IVP 20 mg IVP once; dilute with 10 mL 0.9% NaCl; give over 2 minutes al5 Route: IVP; Site: right forearm; 02:20 Follow up: Response: No adverse reaction al5 00:48 Drug: Ondansetron IVP 4 mg IVP once; over 2 minutes Route: IVP; Site: right forearm; al5 02:20 Follow up: Response: No adverse reaction al5 00:48 Drug: Pantoprazole IVP 80 mg IVP once Route: IVP; Site: right forearm; al5 02:19 Follow up: Response: No adverse reaction al5 00:48 Drug: metoCLOPramide IVP 10 mg IVP once; over 1 to 2 minutes Route: IVP; Site: right al5 forearm; 02:19 Follow up: Response: No adverse reaction al5 00:48 Drug: Rocephin - Rocephin (cefTRIAXone) IVPB 1 grams IVPB once over 30 mins; (mix in 50 al5 mL NS) Route: IVPB; Infused Over: 30 mins; Site: right forearm; 02:19 Follow up: Response: No adverse reaction; IV Status: Completed infusion; IV Intake: [id number] 02:18 Drug: NS 0.9% IV 1000 ml IV at 125 ml/hr once; to be given as a bolus over 60 minutes al5 Route: IV; Rate: 125 ml/hr; Site: left antecubital; 04:27 Follow up: Response: No adverse reaction; IV Status: Infusion continued upon transfer al5 02:19 Drug: Pantoprazole IV 8 mg/hr IV at 25 ml/hr continuous; (Standard dilution is 80 mg in al5 250 mL NS) Route: IV; Rate: 25 ml/hr; Site: left antecubital; 04:28 Follow up: Response: No adverse reaction; IV Status: Infusion continued upon transfer al5 02:19 Drug: Octreotide Infusion (50 mcg/hr) - (Octreotide IV 500 mcg, NS 0.9% IV 500 ml) IV al5 at 50 ml/hr continuous Route: IV; Rate: 50 ml/hr; Site: right forearm; 04:27 Follow up: Response: No adverse reaction; IV Status: Infusion continued upon transfer al5 04:20 Drug: Gabapentin PO 300 mg PO once Route: PO; al5 04:27 Follow up: Response: No adverse reaction al5 Medication: 09/08 22:25 VIS not applicable for this client. al5 09/09 00:05 Blood products: PRBCs X 1 unit given. al5 01:01 Blood products: PRBCs X 2 units given. al5 Intake: 02:19 IV: 50ml; Total: 50ml. al5 Outcome: 02:14 ER care complete, transfer ordered by . sp4 04:29 Transferred by [facility]. Note: [facility] al5 04:29 Condition: stable 04:29 Instructed on the need for transfer, 04:30 Patient left the ED. al5 Signatures: Dispatcher [employer] EDMS Katy Andino Jennifer [email or web address] Kurt Beltrán MD MD sp4 hSantanu Pollock Amanda RN RN al5 Corrections: (The following items were deleted from the chart) 02: 02:18 NS 0.9% IV 1000 ml IV at 125 ml/hr in left forearm al5 al5 02:28 09/08 23:50 Reassessment: Patient appears in no apparent distress at this time. No al5 changes from previously documented assessment. Patient and/or family updated on plan of care and expected duration. Pain level reassessed. Patient is alert, oriented x 3, equal unlabored respirations, skin warm/dry/pink. al5 09/09 03:36 03:24 Spoke to Jorge MG, patient was accepted to [facility] vk 9, to Dr. Palmer vk 04:29 09/08 22:26 No provider procedures requiring assistance completed. al5 al5
[2024-09-09] MEDS ORDERED: GABAPENTIN 300 MG CAP ONE (04:18)
--- NOTE | 2024-09-09 05:43 | RAD REPORT ---
XR CHEST 1 VIEW CLINICAL INDICATION: CVL placement COMPARISON: CT chest abdomen pelvis 09/08/2024 FINDINGS: SUPPORT DEVICES: Left IJ central venous catheter crosses midline and terminates over the region of ri ght subclavian vein. LUNGS/PLEURAL SPACES: Left basilar opacity in keeping with atelectasis. Right lung is clear. No pleur al effusion. No pneumothorax. HEART/MEDIASTINUM: Within normal range. BONES/UPPER ABDOMEN/SOFT TISSUES: No acute findings. IMPRESSION: 1. Malpositioned left IJ central venous catheter. 2. Left basilar atelectasis. Electronically signed by: Latia Bradley MD 09/09/2024 04:37 AM CDT Due to temporary technical issues with the PACS/[employer] reporting system, reports are being felicia d by the in-house radiologist without review as a courtesy to ensure prompt reporting the interpreting radiologist is fully responsible for the content of the report. Transcribed Date/Time: 09/09/2024 5:42 AM
--- NOTE | 2024-09-09 06:23 | RAD REPORT ---
EXAM: XR Chest, 1 View CLINICAL HISTORY: The patient is 69 years old and is Female; repositioning of CVL TECHNIQUE: Frontal view of the chest. COMPARISON: September 09, 2024. FINDINGS: Lungs: See below. Pleural space: Left hemidiaphragm is obscured which can be seen with left pleural effusion, as we ll as left lower lobe consolidation or atelectasis. Blunting of the left costophrenic angle which may indicate left pleural effusion. No pneumothorax. Heart: Unremarkable. Mediastinum: Unremarkable. Normal mediastinal contour. Bones/joints: No acute findings. Tubes, lines and devices: Left central venous catheter with tip in the region of the right brachi ocephalic vein. IMPRESSION: 1. Left central venous catheter with tip in the region of the right brachiocephalic vein. 2. Left hemidiaphragm is obscured which can be seen with left pleural effusion, as well as left low er lobe consolidation or atelectasis. 3. Blunting of the left costophrenic angle which may indicate left pleural effusion. Electronically signed by: Emeterio Gann MD 09/09/2024 05:48 AM [facility] 8 Due to temporary technical issues with the PACS/[employer] reporting system, reports are being felicia d by the in-house radiologist without review as a courtesy to ensure prompt reporting the interpreting radiologist is fully responsible for the content of the report. Transcribed Date/Time: 09/09/2024 6:23 AM
--- NOTE | 2024-09-09 07:01 | RAD REPORT ---
CT CHEST ABDOMEN PELVIS ANGIOGRAPHY WITH IV CONTRAST CLINICAL INDICATIONS: Angiography CT. Aortic aneurysm. COMPARISON: CT chest 06/01/2024. CT lumbar spine 06/01/2024. No prior CT abdomen pelvis images are avai lable for comparison at time of interpretation. TECHNIQUE: CT images of the chest, abdomen and pelvis were obtained during arterial phase following a dministration of intravenous contrast. Multiplanar MIP and MPR reformats were provided. Dose lowering techniques such as automated exposure control, iterative reconstruction, and mA and/or kV ad justment for patient size was utilized for this examination. VASCULAR FINDINGS: THORACIC AORTA: Left aortic arch with classic three-vessel branching pattern. Major branching vessels at aortic arch are widely patent without aneurysm, dissection or flow-limiting stenosis. Mildly thickened mostly noncalcified atheromatous plaque of the thoracic aorta. Multifocal small outward gary josé miguel of opacified descending thoracic aorta, similar to previous exam. No almita thoracic aortic aneurysm by size criteria. No dissection. ABDOMINAL AORTA: Large fusiform infrarenal abdominal aortic aneurysm with thick plaque, measuring hien roximately 6.0 x 5.3 x 7.7 cm (TV x AP x CC) and grossly stable in size and configuration. Ill defined areas of hyperdensity in the thick plaque at the aneurysm appears similar to previous exam. T here is a small focal deficiency of thin calcified aortic wall at right lateral aspect on series 401 image 124, similar to previous exam. Irregular contour of superior abdominal aorta with several s mall focal outpouching but without almita aneurysm. PULMONARY ARTERIES: No filling defect. CELIAC AXIS: Patent. No aneurysm or dissection. No flow limiting stenosis. SUPERIOR MESENTERIC ARTERY: Patent. Moderate stenosis at origins secondary to calcified plaque. No an eurysm. RENAL ARTERIES: Patent. Mild stenosis at origin of bilateral renal arteries secondary to calcified pl aque. No aneurysm. INFERIOR MESENTERIC ARTERY: Not well appreciated. ILIAC ARTERIES: * Extensive atherosclerotic calcification at aorto-iliac bifurcation and iliac arteries. * Severe stenosis in left common iliac artery. No significant flow-limiting stenosis in right commo n iliac artery. * High-grade stenosis in right external iliac artery. Moderate to severe stenosis in left external iliac artery. * High-grade stenosis in right common femoral artery. Visualized right profunda and superficial fem oral arteries are diminutive in caliber. * Moderate stenosis in left common femoral artery and visualized left superficial femoral artery. * No aneurysm in iliac arteries. CHEST FINDINGS: LOWER NECK: Unremarkable. AIRWAYS: Trachea and mainstem bronchi are patent. LUNGS/PLEURA: Emphysema. Left lower lobe is collapsed. Stable 2.6 cm nodular opacity in right upper l obe and 1.8 cm nodular opacity in right lower lobe. Previous seen 6 mm subpleural right lower lobe nodule is no longer present. No new nodule. No pleural effusions or pneumothorax. MEDIASTINUM/NODES: No pathologic adenopathy. HEART: Normal heart size. Trace pericardial effusion. CHEST WALL: Unremarkable. BONES: Diffuse osteopenia. Compression fracture of T11 vertebral body has intervally worsened with now approximately 40% vertebral height loss. There is increasing sclerosis at superior endplate of T11, suggesting acute/subacute on chronic fracture. Stable compression deformity of T12 vertebral bod y. ABDOMEN/PELVIS FINDINGS: LIVER: Unremarkable. BILIARY: Standing wall calcification of gallbladder. Faint intraluminal hyperdensities in gallbladder lumen could represent sludge or stones. No significant biliary ductal dilatation. PANCREAS: Unremarkable. SPLEEN: Stable partially calcified 1.4 cm splenic artery aneurysm. No splenic lesion. ADRENALS: Bilateral adrenals are mildly thickened with otherwise maintained adreniform. KIDNEYS/URETERS: Unremarkable. STOMACH: Unremarkable. BOWEL: Unremarkable. APPENDIX: Appendix is not definitively visualized. No focal inflammation in right lower quadrant to s uggest acute appendicitis. MESENTERY/PERITONEUM: No free fluid or free air. No focal collection. RETROPERITONEUM: No adenopathy. 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 REPRODUCTIVE: Unremarkable. ABDOMINAL/PELVIC WALL: Unremarkable. BONES: Diffuse osteopenia. Stable compression deformity of L3 vertebral body. No acute abnormality. IMPRESSION: 1. Stable large fusiform infrarenal abdominal aortic aneurysm since 06/01/2024. Ill defined areas of hyperdensity in the thick plaque at the aneurysm appears similar to previous exam. 2. Multifocal small outward pouching of opacified descending thoracic and abdominal aorta aorta, si milar to previous exam. 3. 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 Moderate to hig h-grade stenosis in bilateral iliac arteries and femoral arteries, as described. 4. Stable 2.6 cm nodular opacity in right upper lobe and 1.8 cm nodular opacity in right lower lobe . 5. Acute/subacute on chronic T11 compression fracture. 6. Stable compression deformity of T12 and L3 vertebral bodies. 7. Stable partially calcified 1.4 cm splenic artery aneurysm. 8. Porcelain gallbladder. Faint intraluminal hyperdensities in gallbladder lumen could represent sl udge or stones. Electronically signed by: Latia Bradley MD 09/09/2024 03:50 AM CDT RP Due to temporary technical issues with the PACS/[employer] reporting system, reports are being felicia d by the in-house radiologist without review as a courtesy to ensure prompt reporting the interpreting radiologist is fully responsible for the content of the report. Transcribed Date/Time: 09/09/2024 7:00 AM
[2024-09-09 07:49] LABS: Arterial Blood Carboxyhemoglob 0.3 % (0-1.5); Blood Gas Oxyhemoglobin 17.3 % (94-97); Blood Gas THB 13.3 g/dl (12-18); Blood O2 Saturation 17.7 % (92-98.5)
[2024-09-09 13:09] VITALS: TEMP 97.5
[2024-09-09 13:24] VITALS: O2SAT 100
[2024-09-09 13:26] VITALS: BP 145/80
== END 2024-09-09 04:30 | disposition short-term general hospital (02) ==
LOC: ER 22:10
PROC: 30233N1 Transfusion of Nonautologous Red Blood Cells into Peripheral Vein, Percutaneous Approach (ICD-10-PCS; principal; 2024-09-08)
DX: R57.8 Other shock (principal); I95.9 Hypotension, unspecified; Z86.73 Personal history of transient ischemic attack (TIA), and cerebral infarction without residual deficits
CPT/HCPCS: 85025; 36415; 86900; 86850; 85610; 86901; 83605 ×2; 86920 ×2; 83690; 80053; 71275; 74175; 71045 ×2; 82805; 36600; 36430; 36556; Q9967; J2765; J2354; J2470 ×2; J2405; P9016 ×2; J7050 ×2; J7040; J7030; J0696